=== PATIENT | female | born 1970 | race Caucasian/White ===

== ENCOUNTER 2017-08-18 06:06 | Emergency (ER) | payer OTHER ==
--- NOTE | 2017-08-18 06:35 | ER Document Report ---
ED Medical Screen (RME) - General Chief Complaint: Finger Injury Stated Complaint: RING SWOLLEN ON FINGER Time Seen by Provider: 08/18/17 06:29 TRAVEL OUTSIDE OF THE [place] IN LAST 30 DAYS: No - HPI Notes: 08/18/17 06:34 Patient is a 47-year-old female who presents to the ED complaining of a ring stuck to her left ring finger that she noticed last night. Patient states that she just at this time and ring placed on her finger 12 hours ago. Patient states that she tried everything at home that she could, but cannot get the ring off. Patient states that she still has feeling in the finger without any numbness or tingling. She has no other concerns or complaints. Denies any fever, chest pain, shortness of breath, abdominal pain. I have treated and performed a rapid initial assessment of this patient. A comprehensive ED assessment and evaluation of the patient, analysis of test results and completion of medical decision making process will be conducted by additional ED providers. PHYSICAL EXAMINATION: GENERAL: Well-appearing, well-nourished and in no acute distress. A&Ox4. Answers questions appropriately. LUNGS: Breath sounds clear to auscultation bilaterally and equal. No wheezes rales or rhonchi. HEART: Regular rate and rhythm without murmurs, rubs, gallops. Left ring finger: there is a liza ring noted with swollen finger. N/V intact distal. No bony tenderness. - Related Data Allergies/Adverse Reactions: No Known Allergies Allergy (Unverified 08/18/17 06:12) Physical Exam - Vital signs Vitals: Temp Pulse Resp BP Pulse Ox 97.8 F 69 16 128/88 H 99 08/18/17 06:11 08/18/17 06:11 08/18/17 06:11 08/18/17 06:11 08/18/17 06:11 Course - Vital Signs Vital signs: Temp Pulse Resp BP Pulse Ox 97.8 F 69 16 128/88 H 99 08/18/17 06:11 08/18/17 06:11 08/18/17 06:11 08/18/17 06:11 08/18/17 06:11
[2017-08-18] MEDS ORDERED: DIPH/PERTUSS(ACELL)/TETANUS VAC/PF 0.5 ML SYR (>=10YO) IM ONE (07:14)
--- NOTE | 2017-08-18 07:14 | ER Document Report ---
ED General - General Chief Complaint: Finger Injury Stated Complaint: RING SWOLLEN ON FINGER Time Seen by Provider: 08/18/17 06:29 Mode of Arrival: Ambulatory Information source: Patient Notes: 47-year-old female presents with a ring that was stuck. Patient just had a ring placed yesterday noted swelling last night TRAVEL OUTSIDE OF THE [place] IN LAST 30 DAYS: No - HPI Onset: Yesterday Onset/Duration: Sudden Quality of pain: Sharp Severity: Moderate Pain Level: 2 Associated symptoms: Other Exacerbated by: Movement Relieved by: Denies Similar symptoms previously: No Recently seen / treated by doctor: No - Related Data Allergies/Adverse Reactions: No Known Allergies Allergy (Unverified 08/18/17 06:12) Past Medical History - Social History Smoking Status: Never Smoker Cigarette use (# per day): No Chew tobacco use (# tins/day): No Smoking Education Provided: No Family History: Reviewed & Not Pertinent Review of Systems - Review of Systems Notes: REVIEW OF SYSTEMS: CONSTITUTIONAL : Denies fever, chills, or sweats. Denies recent illness. EENT: Denies eye, ear, throat, or mouth pain or symptoms. Denies nasal or sinus congestion or discharge. Denies throat, tongue, or mouth swelling or difficulty swallowing. CARDIOVASCULAR: Denies chest pain. Denies palpitations or racing or irregular heart beat. Denies ankle edema. RESPIRATORY: Denies cough, cold, or chest congestion. Denies shortness of breath, difficulty breathing, or wheezing. GASTROINTESTINAL: Denies abdominal pain or distention. Denies nausea, vomiting , or diarrhea. Denies blood in vomitus, stools, or per rectum. Denies black, tarry stools. Denies constipation. GENITOURINARY: Denies difficulty urinating, painful urination, burning, frequency, blood in urine, or discharge. FEMALE GENITOURINARY: Denies vaginal bleeding, heavy or abnormal periods, irregular periods. Denies vaginal discharge or odor. MUSCULOSKELETAL: Denies back or neck pain or stiffness. Denies joint pain or swelling. SKIN: Finger swelling HEMATOLOGIC : Denies easy bruising or bleeding. LYMPHATIC: Denies swollen, enlarged glands. NEUROLOGICAL: Denies confusion or altered mental status. Denies passing out or loss of consciousness. Denies dizziness or lightheadedness. Denies headache. Denies weakness or paralysis or loss of use of either side. Denies problems with gait or speech. Denies sensory loss, numbness, or tingling. Denies seizures. PSYCHIATRIC: Denies anxiety or stress. Denies depression, suicidal ideation, or homicidal ideation. ALL OTHER SYSTEMS REVIEWED AND NEGATIVE. PHYSICAL EXAMINATION: SKIN:ring stuck on finger, swelling noted Dictation was performed using [employer] voice recognition software Physical Exam - Vital signs Vitals: Temp Pulse Resp BP Pulse Ox 97.8 F 69 16 128/88 H 99 08/18/17 06:11 08/18/17 06:11 08/18/17 06:11 08/18/17 06:11 08/18/17 06:11 Course - Re-evaluation Re-evalutation: 08/18/17 07:20 Digital nerve block was performed ring was removed with Vaseline Tetanus will be updated patient started on Augmentin - Vital Signs Vital signs: Temp Pulse Resp BP Pulse Ox 97.8 F 69 16 128/88 H 99 08/18/17 06:11 08/18/17 06:11 08/18/17 06:11 08/18/17 06:11 08/18/17 06:11 Discharge - Discharge Clinical Impression: Ring stuck on finger Condition: Stable Disposition: HOME, SELF-CARE Instructions: Dressing Instructions for Open Wounds ([facility]) Additional Instructions: Follow up with your physician tomorrow for further care or return to the ED IMMEDIATELY if symptoms worsen or new concerns occur. If you cannot afford to follow up with your primary care physician a list of low cost clinics have been provided at the end of your discharge papers as well.
[2017-08-18 08:30] VITALS: BP 124/64
== END 2017-08-18 07:55 | disposition home or self-care (01) ==
LOC: ER 06:06
PROC: 3E0T3BZ Introduction of Anesthetic Agent into Peripheral Nerves and Plexi, Percutaneous Approach (ICD-10-PCS; principal; 2017-08-18)
DX: Z23 Encounter for immunization (principal); S60.455A Superficial foreign body of left ring finger, initial encounter; X58.XXXA Exposure to other specified factors, initial encounter
CPT/HCPCS: 90715; 99283